=== PATIENT | female | born 1950 | race Caucasian/White ===

== ENCOUNTER 2019-12-14 07:16 | Day surgery (SDC) | payer MEDICARE ==
[~2019-12-14] VITALS: Ht 154.9 cm; Wt 57.6 kg
[2019-12-14] VITALS (18 sets, daily range): BP systolic 122–151; BP diastolic 78–108
[2019-12-14] MEDS ORDERED: FOLI0.4T2 PO (07:47)
[2019-12-14] MEDS ORDERED: ERGO2000 PO (07:47)
[2019-12-14] MEDS ORDERED: CHOL400T14 PO ×2 (07:48)
[2019-12-14] MEDS ORDERED: normal saline 1,000 ML IV SCH (07:50)
[2019-12-14 08:12] LABS: BASOPHILS % (AUTO) 0.1 % (0-1); EOSINOPHILS # (AUTO) 0.1 X10'3 (0-0.9); EOSINOPHILS % (AUTO) 0.7 % (0-6); HEMATOCRIT 35.6 % (35.0-45.0); HEMOGLOBIN 11.7 g/dl (12.0-16.0); LYMPHOCYTES # (AUTO) 0.5 X10'3 (1.1-4.8); LYMPHOCYTES % (AUTO) 5.7 % (21-51); MEAN CORPUSCULAR HEMOGLOBIN 24.8 PG (27.0-31.0); MEAN CORPUSCULAR HGB CONC 32.8 g/dL (33.0-36.5); MEAN CORPUSCULAR VOLUME 75.6 FL (78-98); MEAN PLATELET VOLUME 9.3 FL (7.4-10.4); MONOCYTES % (AUTO) 11.8 % (2-12); NEUTROPHILS # (AUTO) 6.9 X10'3 (1.8-7.7); NEUTROPHILS % (AUTO) 81.7 % (42-75); PLATELET COUNT 289 X10'3 (140-440); RED BLOOD COUNT 4.71 X10'6 (4.20-5.60); RED CELL DISTRIBUTION WIDTH 20.2 % (11.5-14.5); WHITE BLOOD COUNT 8.4 X10'3 (4.5-11.0)
[2019-12-14 08:30] LABS: ALBUMIN 2.1 G/DL (3.4-5.0); ANION GAP 9 (8-16); BLOOD UREA NITROGEN 13 MG/DL (7-18); BUN/CREATININE RATIO 13.1 (6.6-38.0); CALCIUM 8.7 MG/DL (8.5-10.1); CHLORIDE 107 MMOL/L (99-107); CREATININE 0.99 MG/DL (0.40-0.90); GLUCOSE 87 MG/DL (70-104); POTASSIUM 3.7 MMOL/L (3.5-5.1); SODIUM 143 MMOL/L (135-145); eGFR 56 ML/MIN
[2019-12-14] MEDS ORDERED: LIDOcaine 1% (10mg/ml) 2ml vial SQ ONE (08:50)
[2019-12-14] MEDS ORDERED: midazolam 2 mg/2 ml injection IV PRN (08:50)
[2019-12-14] MEDS ORDERED: fentaNYL/PF 50MCG/1 ML 2ML syringe IV PRN (08:50)
[2019-12-14] MEDS ORDERED: ondansetron/PF 4mg/2ml inj ONE (09:10)
[2019-12-14] MEDS ORDERED: fentaNYL/PF 50MCG/1 ML 2ML syringe ONE (09:12)
[2019-12-14] MEDS ORDERED: midazolam 2 mg/2 ml injection ONE (09:12)
[2019-12-14 09:30] LABS: ANISOCYTOSIS 3+; MICROCYTOSIS 1+; PLATELET ESTIMATE NORMAL; POIKILOCYTOSIS FEW
[2019-12-14 09:37] LABS: LARGE PLATELETS FEW
[2019-12-14] MEDS ORDERED: gelatin sponge, absorbable (Gelfoam 12-7MM) sponge TP ONE (09:45)
[2019-12-14] MEDS ORDERED: HYDROcodone/acetaminophen 5mg/325mg tablet PO PRN (10:15)
== END 2019-12-14 13:40 | disposition home or self-care (01) ==
LOC: SSTAY O 07:16
PROVIDERS: ATTEND Radiology Vascular & Interventional Radiology
DX: C22.7 Other specified carcinomas of liver (principal); C79.9 Secondary malignant neoplasm of unspecified site; R94.5 Abnormal results of liver function studies; R63.4 Abnormal weight loss; Z68.25 Body mass index [BMI] 25.0-25.9, adult; R10.817 Generalized abdominal tenderness
CPT/HCPCS: 36415; 47000; 77012; 80048; 85025; 85610; J2250; J2405; J3010; J7030; 88305; 88341; 88342